=== PATIENT | female | born 1965 | race Caucasian/White ===

== ENCOUNTER → 2024-05-19 | Outpatient (CLI) | payer MEDICAID, SELFPAY ==
--- NOTE | 2024-05-19 15:00 | XR_ITS ---
Examination: Thyroid sonography complete TECHNIQUE: Grayscale sonographic images thyroid lobes with color flow analysis Exam date and time: May 19, 2024 1513 hours INDICATIONS: History thyroid nodule FINDINGS: Right thyroid 4.1 x 1.7 x 1.9 cm Midpole nodule 15 x 13 x 12 mm Left thyroid 4.7 x 4.2 x 1.5 cm Lower pole nodule 7 x 4 x 6 mm IMPRESSION: Stable midpole right thyroid nodule Stable lower pole left thyroid nodule
== END | disposition home or self-care (01) ==
LOC: CDIM 14:50
PROVIDERS: PCP Physician Assistant; Referring Provider Physician Assistant; Visit Provider Physician Assistant
DX: E04.2 Nontoxic multinodular goiter (principal)
CPT/HCPCS: 76536

== ENCOUNTER → 2024-06-11 | Outpatient (CLI) | payer MEDICAID, SELFPAY ==
--- NOTE | 2024-06-11 09:00 | XR_ITS ---
Examination: Diagnostic digital mammography, unilateral, right Computer aided detection 3-D breast Tomosynthesis, unilateral Date and time of exam: The , 8:49 AM Comparisons: June 15, 2023, August 01, 2023 Indications: Follow-up focal asymmetry outer right breast Technique: Nonmagnified MLO, CC views of the right breast have been obtained, reconstructed from 3-D Tomosynthesis images. R2 computer aided detection program utilized for evaluation of suspicious masses and/or abnormal calcifications. 3-D Tomosynthesis images obtained. Technologist: Findings: There are scattered areas of fibroglandular density. Benign-appearing stable focal asymmetry outer right breast. Otherwise no evidence of abnormal masses or suspicious calcifications. Impression: BI-RADS category 2: Benign findings Recommend 1 year follow-up mammogram
== END | disposition home or self-care (01) ==
LOC: CDIM 08:28
PROVIDERS: PCP Physician Assistant; Referring Provider Physician Assistant; Visit Provider Physician Assistant
DX: R92.321 Mammographic fibroglandular density, right breast (principal); R92.1 Mammographic calcification found on diagnostic imaging of breast
CPT/HCPCS: 77061; 77065; G0279

== ENCOUNTER → 2024-06-13 | Outpatient (CLI) | payer MEDICAID, SELFPAY ==
--- NOTE | 2024-06-13 10:00 | XR_ITS ---
Examination: CT chest, without intravenous contrast. Sagittal and coronal 2-D reconstructions. Exam date and time: June 05, 2024 1002 hrs. Indications: History pulmonary nodules CTDI:vol (mGy) 13 DLP: (mGycm) 427 Technique: Multiple 3.0 mm axial sections of the chest to been obtained. Bone and lung density settings are obtained. Sagittal and coronal 2-D reconstructions have been obtained. Low dose protocols were performed. One or more of the following dose reduction techniques were used; automated exposure control, adjustment of the mA and/or KV according to patient size, use of iterative reconstruction technique. Findings: 10 mm right thyroid nodule Thoracic aortic calcification no aneurysmal dilatation Pulmonary artery segments are not enlarged No paratracheal tracheobronchial or bronchopulmonary adenopathy 3 mm pulmonary nodule left upper lobe 3 mm pulmonary nodule right upper lobe No pneumonia or pulmonary edema No pleural disease No visualized liver or splenic lesion Gallstones No pancreatic or adrenal mass Impression: Subcentimeter noncalcified pulmonary nodules as above, with this study as baseline recommend 6 month follow-up CT chest without contrast Cholelithiasis
== END | disposition home or self-care (01) ==
PROVIDERS: PCP Physician Assistant; Referring Provider Physician Assistant; Visit Provider Physician Assistant
DX: R91.8 Other nonspecific abnormal finding of lung field (principal); K80.20 Calculus of gallbladder without cholecystitis without obstruction
CPT/HCPCS: 71271

== ENCOUNTER 2024-08-24 14:49 | Emergency (ER) | payer MEDICAID, SELFPAY ==
--- NOTE | 2024-08-24 15:02 | EDNOTE_ITS ---
ED General RME/HPI General Chief complaint: Ankle/Foot Injury Stated complaint: POSS. L) ANKLE FX, FELL IN YARD THIS MORNING Time Seen by Provider: 08/24/24 15:01 Arrival date/time: 08/24/24 14:49 CC: Left ankle pain HPI ongoing since this morning after rolling her ankle. Patient felt a popping sensation . Patient states she has done this to her right ankle in the past which has not healed properly patient denies of complete fall stating she corrected herself before going down and stood upright. No OTC medicines taken the patient is awake alert oriented she is currently not on any blood thinners localized pain is 4-5 on the 10 scale. Related Data Previous Rx's ?Medication ?Instructions ?Recorded acetaminophen 500 mg tablet 1,000 mg (2 x 500 mg) PO Q ID PRN 10/13/21 (Tylenol Extra Strength) fever or pain #30 tabs ibuprofen 600 mg tablet 600 mg PO TID PRN pain #30 t abs 04/29/22 sulfamethoxazole 800 1 tab PO BID #14 tabs mg-trimethoprim 160 mg tablet (Bactrim DS) Allergies Allergy/AdvReac Type Severity Reaction Status Date / Time No Known Allergies Allergy Verified 08/24/24 14:52 Review of Systems Review of Systems Narrative Review of Systems: GEN: No fever, no chills, no weight loss EYES: No discharge, no visual changes, no pain HEENT: No ear pain, no congestion, no sore throat PULM: No shortness of breath, no cough, no congestion CV: No chest pain, no dyspnea on exertion, no palpitations GI: No nausea, no vomiting, no diarrhea, no pain, no constipation : No frequency, no urgency, no dysuria MUSC/SKEL: + joint pain, no back pain SKIN: No rash PSYCH: No hallucinations, no depression HEME/LYMPH: No easy bleeding or bruising tendencies NEURO: No weakness, no headache Past Medical History Past Medical History CARDIAC: Negative Cardiac Disorders or Congestive Heart Failure RESPIRATORY: Negative Chronic Obstructive Pulmonary Disease (COPD) or Asthma GENITOURINARY: Negative Renal Disease ENDOCRINE: Positive Diabetes Mellitus Type 2; Negative Diabetes Mellitus Type 1 HEMATOLOGIC: Negative Sickle Cell Disease Social History SMOKING STATUS: Current every day smoker ED Exam Narrative Physical exam: [General: Mild discomfort but not in any acute distress Head normocephalic HEENT: Within acceptable limits Neck is supple nontender Chest equal chest rise nontender to palpation Respiratory: Clear to auscultation no wheezes crackles or rubs CV: Rate rhythm is regular no murmurs rubs or clicks Abdomen is distended secondary to body habitus soft nontender no masses positive bowel sounds all 4 quadrants Back: No CVA tenderness no spinous process tenderness from cervical spine thoracic and lumbar spine Skin: Intact no petechiae rash induration ulceration or crepitus Extremities: Left ankle, the patient has mild lateral malleolus edema, with a minimal amount of edema to the dorsum of the foot laterally. There is no ecchymosis, no tenderness with palpation of the calcaneus, Achilles tendon, or the distal metatarsal squeeze. Cap refill in the digits less than 2 seconds neurosensory intact. Moving all other extremities against resistance cap refill less than 2 seconds neurosensory intact Neuro: Awake alert oriented x3 Glascow coma 15 no focal deficits] Course Course Course Narrative: Patient is refusing all crutches immobilizing equipment as she has all of these at home. Will discharge the patient home she is advised to take ibuprofen Tylenol for pain Quality Measures none Orders Category Date Time Status XR ankle comp LT min 3V Stat Exams 08/24/24 15:02 Taken Vital Signs Vital signs: Vital Signs Temperature 98.2 F 08/24/24 15:05 Pulse Rate 95 08/24/24 15:05 Respiratory Rate 18 08/24/24 15:05 Blood Pressure 121/69 08/24/24 15:05 Pulse Oximetry (%) 97 08/24/24 15:05 Oxygen Delivery Method Room Air 08/24/24 15:05 Discharge Plan Plan Patient Disposition: HOME (Self Care) Patient condition on transfer: Stable Prescriptions/Referrals Prescriptions/Med Rec: No Action acetaminophen [Tylenol Extra Strength] 500 mg tablet 1,000 mg PO QID PRN (Reason: fever or pain) Qty: 30 0RF sulfamethoxazole-trimethoprim [Bactrim DS] 800-160 mg tablet 1 tab PO BID Qty: 14 0RF ibuprofen 600 mg tablet 600 mg PO TID PRN (Reason: pain) Qty: 30 0RF Referrals: Autumn Chen PA-C [Primary Care Provider] - In 1 week Problem List Clinical Impression: Ankle sprain and strain Patient/Caregiver Discharge Instructions Education Materials: ED Ankle Sprain (Adult) Print Language: Z[place]ian Stand Alone Forms: Wendy Award Info., Work/School Release, Patient Portal Info Letter PA/SLITTER CREASER SLOTTER OPERATOR Supervising Physician SUSANA/SLITTER CREASER SLOTTER OPERATOR Supervising Physician: Connor MENARD Clinical Information Provided by: patient Medical Records reviewed [facility] Imaging Imaging interpretation: Interpreted by me Imaging Interpretation(s): Left ankle x-rays interpreted by me no fracture malalignment or dislocation. Diagnosis Differential Diagnosis ED Complaint MDM: Sprain strain fracture
--- NOTE | 2024-08-24 15:02 | XR_ITS ---
EXAMINATION: Ankle, left 3 views . Technique: Ankle AP, oblique, lateral 3 views Date and time of exam: August 24, 2024 1508 hrs. Indications: Injury to the ankle today, ankle pain. Findings: No acute fracture 6 mm plantar bony calcaneal spur No ankle dislocation Impression: No acute fracture
[2024-08-24 15:05] VITALS: BP 121/69; PULSE 95; RESP 18; TEMP 36.8; O2SAT 97
== END 2024-08-24 15:44 | disposition home or self-care (01) ==
PROVIDERS: Emergency Provider Family Medicine; PCP Physician Assistant
DX: S93.402A Sprain of unspecified ligament of left ankle, initial encounter (principal); X58.XXXA Exposure to other specified factors, initial encounter
CPT/HCPCS: 73610; 99283

== ENCOUNTER → 2025-01-07 | Outpatient (CLI) | payer MEDICAID, SELFPAY ==
--- NOTE | 2025-01-07 09:55 | XR_ITS ---
Examination: Wrist, right 3 views Technique: Wrist AP, oblique, lateral 3 views Date and time of exam: January 07, 2025 1013 hours INDICATIONS: Right hand numbness beginning 3 months ago. FINDINGS: Moderate osteopenia. Mild osteoarthritis radiocarpal and first carpometacarpal joints. No erosive arthritis. No fracture IMPRESSION: Mild osteoarthritis
== END | disposition home or self-care (01) ==
LOC: CDIM 09:50
PROVIDERS: PCP Physician Assistant
DX: M19.031 Primary osteoarthritis, right wrist (principal)
CPT/HCPCS: 73110